=== PATIENT | female | born 1965 | race Caucasian/White ===

== ENCOUNTER 2025-08-02 23:23 | Emergency (ER) | payer MEDICAID ==
[~2025-08-02] VITALS: Ht 167.6 cm; Wt 79.5 kg
[2025-08-02 23:32] VITALS: TEMP 98
[2025-08-02] MEDS: HYDROcodone-ACET 10/325MG TAB PO ONE (23:45)
--- NOTE | 2025-08-02 23:54 | ED.PDOC ---
History of Present Illness HPI Comments 60-year-old female who came to ER for dizziness. Patient states at about an hour ago, she developed sudden onset dizziness, diaphoresis and back pains. Also experiencing bilateral tinnitus. [place] like the room was spinning. She does have history of vertigo. 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 Hx Family History Family History: Reviewed,noncontributory to illness Social History Smoker: Cigarettes Alcohol: Denies ETOH Use Drugs: Denies Drug Use Lives In: Home Constitutional: reports: diaphoresis; denies: chills, fatigue, fever, malaise, sweats, weakness, others EENTM: denies: blurred vision, double vision, ear bleeding, ear discharge, ear drainage, ear pain, ear ringing, eye pain, eye redness, hearing loss, mouth pain, mouth swelling, nasal discharge, nose bleeding, nose congestion, nose pain, photophobia, tearing, throat pain, throat swelling, voice changes, others Respiratory: denies: cough, hemoptysis, orthopnea, SOB at rest, shortness of breath, SOB with excertion, stridor, wheezing, others Cardiovascular: denies: chest pain, dizzy spells, diaphoresis, Dyspnea on exertion, edema, irregular heart beat, left arm pain, lightheadedness, palpitations, PND, syncope, others Gastrointestinal: denies: abdomen distended, abdominal pain, blood streaked bowels, constipated, diarrhea, dysphagia, difficulty swallowing, hematemesis, melena, nausea, poor appetite, poor fluid intake, rectal bleeding, rectal pain, vomiting, others Genitourinary: denies: abnormal vagina bleeding, burning, dyspareunia, dysuria, flank pain, frequency, hematuria, incontinence, pain, , vagina discharge, urgency, others Neurological: reports: dizziness; denies: fainting, headache, left sided numbne ss, left sided weakness, numbness, paresthesia, pre-existing deficit, right sided numbness, right sided weakness, seizure, speech problems, tingling, tremors, weakness, others Musculoskeletal: reports: back pain; denies: gout, joint pain, joint swelling, muscle pain, muscle stiffness, neck pain, others Integumetry: denies: bruises, change in color, change in hair/nails, dryness, laceration, lesions, lumps, rash, wounds, others Allergic/Immunocompromised: denies: Difficulty Healing, Frequent Infections, Hives, Itching, others Hematologic/Lymphatic: denies: anemia, blood clots, easy bleeding, easy bruising, swollen glands, others Endocrine: denies: excessive hunger, excessive sweating, excessive thirst, excessive urination, flushing, intolerance to cold, intolerance to heat, unexplained weight gain, unexplained weight loss, others Psychiatric: denies: anxiety, bipolar disorder, depression, hopeless, panic disorder, schizophrenia, sleepless, suicidal, others Physical Exam General Appearance: No Apparent Distress, Normal HEENT: Normal ENT Inspection, Pharynx Normal, TMs Normal Neck: Full Range of Motion, Non-Tender, Normal, Normal Inspection Respiratory: Chest Non-Tender, Lungs Clear, No Accessory Muscle Use, No Respiratory Distress, Normal Breath Sounds Cardiovascular: No Edema, No JVD, No Murmur, No Gallop, Normal Peripheral Pulses, Regular Rate/Rhythm Breast Exam: Deferred Gastrointestinal: No Organomegaly, Non Tender, No Pulsatile Mass, Normal Bowel Sounds, Soft Genitalia: Deferred Pelvic: Deferred Rectal: Deferred Extremities: No calf tenderness, Normal capillary refill, Normal inspection, Normal range of motion, Non-tender, No pedal edema Musculoskeletal : Apperance: Normal Neurologic: Alert, 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 Was a procedure done?: No Differential Dx Considerations may include: Anemia, electrolyte imbalance, anxiety, vertigo, dizziness X-Ray, Labs, Meds, VS Vital Signs Date Time Temp Pulse Resp B/P (MAP) Pulse Ox O2 Delivery O2 Flow Rate FiO2 08/03/25 00:17 110 18 136/85 (102) 96 08/02/25 23:32 98.0 113 20 162/93 97 98.0 Lab Test 08/03/25 00:50 08/03/25 00:00 08/02/25 23:50 Range/Units Troponin I High Sensitivity 5 6 </=34 ng/L Urine Color Yellow Yellow Urine Clarity Clear Clear Urine pH 7.5 5.0-9.0 Urine Specific [place] 1.020 1.001-1.035 Urine Protein Trace H Negative Urine Ketones Negative Negative Urine Blood Trace H Negative /uL Urine Nitrite Negative Negative Urine Bilirubin Negative Negative Urine Urobilinogen Normal Negative mg/dL Urine Leukocyte Esterase Negative Negative /uL Urine RBC 12 0 - 4 /hpf Urine Microscopic WBC 1 0-5 /HPF Urine Squamous Epithelial Cells Few <5 /hpf Urine Bacteria Few H None Seen /hpf Urine Mucus Few None Seen Urine Glucose Normal Normal mg/dL White Blood Count 9.6 4.4-10.8 10^3/uL Red Blood Count 4.33 4.0-5.20 10^6/uL Hemoglobin 13.8 12.2-16.2 g/dL Hematocrit 40.3 36.0-46.0 % Mean Corpuscular Volume 93.1 80.0-100.0 fL Mean Corpuscular Hemoglobin 31.8 28.0-32.0 pg Mean Corpuscular Hemoglobin Concent 34.1 32.0-36.0 g/dL Red Cell Distribution Width 12.9 11.8-14.3 % Platelet Count 269 140-450 10^3/uL Mean Platelet Volume 5.8 L 6.9-10.8 fL Neutrophils (%) (Auto) 83.2 H 37.0-80.0 % Lymphocytes (%) (Auto) 10.1 10.0-50.0 % Monocytes (%) (Auto) 6.1 0.0-12.0 % Eosinophils (%) (Auto) 0.2 0.0-7.0 % Basophils (%) (Auto) 0.4 0.0-2.0 % Neutrophils # (Auto) 8.0 1.6-8.6 10 ^3/uL Lymphocytes # (Auto) 1.0 0.4-5.4 10 ^3/uL Monocytes # (Auto) 0.6 0-1.3 10 ^3/uL Eosinophils # (Auto) 0 0-0.8 10 ^3/uL Basophils # (Auto) 0 0-0.2 10 ^3/uL Nucleated Red Blood Cells 0.0 % Sodium Level 135 L 136-145 mmol/L Potassium Level 3.8 3.5-5.1 mmol/L Chloride Level 102 98-107 mmol/L Carbon Dioxide Level 24 20-31 mmol/L Anion Gap 9 5-15 Blood Urea Nitrogen 10 9-23 mg/dL Creatinine 0.79 0.550-1.02 mg/dL Glomerular Filtration Rate Calc 85 >90 mL/min BUN/Creatinine Ratio 12.7 10.0-20.0 Serum Glucose 152 H 74-106 mg/dL Calcium Level 9.3 8.7-10.4 mg/dL Total Bilirubin 0.5 0.2-1.0 mg/dL Aspartate Amino Transferase (AST) 16 13-40 U/L Alanine Aminotransferase (ALT) 14 7-40 U/L Alkaline Phosphatase 90 46-116 U/L Total Protein 7.1 5.7-8.2 g/dL Albumin 4.4 3.2-4.8 g/dL Lipase 26 12-53 U/L Current Medications Medications (Trade) Dose Ordered Sig/Dori Route Start Time Stop Time Status Last Admin Ondansetron HCl (Zofran Po) 8 mg ONCE ONCE PO 08/02/25 23:45 08/02/25 23:47 DC 08/03/25 00:21 Tramadol HCl (Ultram) 50 mg ONCE ONCE PO 08/03/25 00:30 08/03/25 00:31 DC 08/03/25 00:32 Time of 1ST Reevaluation: 23:52 Reevaluation 1ST: Unchanged Patient Education/Counseling: Diagnosis, Treatment Family Education/Counseling: No Family Present SEPSIS Sepsis Screen Date sepsis recognized/suspect: Aug 02, 2025 Time Sepsis recognized/suspect: 2335 Recent Procedure: No On Antibiotic Therapy: No Respiratory Rate >20: No Heart Rate >90: Yes Temp<36 C (96.8 F) or >38.3 C: No SBP <90 or MAP <65 mmHG: No New Acute Mental Status Change: No Is the patient on CPAP, BIPAP,: No Physician Orders Troponin-I Hs (08/03/25 06:00) Electrocardigram (08/02/25 23:45) Head Without Contrast (08/02/25 23:45) Ondansetron Po (Zofran Po) (08/02/25 23:45) Vital Signs Date Time Temp Pulse Resp B/P (MAP) Pulse Ox O2 Delivery O2 Flow Rate FiO2 08/03/25 00:17 110 18 136/85 (102) 96 08/02/25 23:32 98.0 113 20 162/93 97 98.0 Laboratory Tests Test 08/02/25 23:50 White Blood Count 9.6 10^3/uL (4.4-10.8) Medications Medications Dose Ordered Sig/Dori Route Start Time Stop Time Status Last Admin Dose Admin Ondansetron HCl 8 mg ONCE ONCE PO 08/02/25 23:45 08/02/25 23:47 DC 08/03/25 00:21 Tramadol HCl 50 mg ONCE ONCE PO 08/03/25 00:30 08/03/25 00:31 DC 08/03/25 00:32 Departure 1 Departure Time of Disposition: 02:19 Impression: Primary Impression: Dizziness Disposition: 07 LEFT AGAINST MEDICAL ADVICE Condition: Guarded Critical Care Note Critical Care Time?: No Stability Stability form required: No Heart Score Heart Score: Heart Score Response (Comments) Value History N/A 0 EKG N/A 0 Age N/A 0 Risk Factors N/A 0 Troponin N/A 0 Total 0 I personally scribed for NATANAEL BERRIOS MD ([email or web address]) on 08/02/25 at 23:54. Electronically submitted by Vik Fleming ([facility]). NATANAEL BERRIOS MD Aug 02, 2025 23:54
[2025-08-03] LABS: Hematocrit 40.3 % (36.0-46.0); Hemoglobin 13.8 g/dL (12.2-16.2); Mean Corpuscular Hemoglobin 31.8 pg (28.0-32.0); Mean Corpuscular Volume 93.1 fL (80.0-100.0); Nucleated Red Blood Cells % 0.0 %
[2025-08-03 00:17] VITALS: BP 136/85; RESP 18; O2SAT 96
[2025-08-03 00:20] LABS: Alanine Aminotransferase 14 U/L (7-40); Albumin 4.4 g/dL (3.2-4.8); Alkaline Phosphatase 90 U/L (46-116); Anion Gap 9 (5-15); BUN/Creatinine Ratio 12.7 (10.0-20.0); Blood Urea Nitrogen 10 mg/dL (9-23); Calcium 9.3 mg/dL (8.7-10.4); Carbon Dioxide 24 mmol/L (20-31); Chloride 102 mmol/L (98-107); Lipase 26 U/L (12-53); Potassium 3.8 mmol/L (3.5-5.1); Total Protein 7.1 g/dL (5.7-8.2)
[2025-08-03 00:21] LABS: Bilirubin, Total 0.5 mg/dL (0.2-1.0)
[2025-08-03] MEDS: ONDANSETRON ODT 4 MG TAB PO ONE (00:21)
[2025-08-03 00:22] LABS: Glucose 152 mg/dL (74-106); Sodium 135 mmol/L (136-145)
[2025-08-03 00:45] VITALS: PULSE 105
[2025-08-03 01:28] LABS: Urine Protein, UAD TRACE (Negative)
--- NOTE | 2025-08-03 02:24 | DVH ---
CT HEAD WITHOUT CONTRAST HISTORY: Vertigo. COMPARISON: None available. CONTRAST: Study was performed without contrast. TECHNIQUE: Axial images from the skull base to the vertex with coronal and sagittal reformatted images. Dose reduction technique was used on this scan by utilizing automated exposure control, adjustment of the mA and/or kV according to the patient size. DICOM format image data available to non-affiliated external healthcare facilities or entities on a secure, media free, reciprocally searchable basis with patient authorization for at least a 12 month period after the study. CTDIvol: 61.1 mGy; DLP: 1204.2 mGy-cm. FINDINGS: BRAIN PARENCHYMA: No acute hemorrhage, large vascular territory infarct, or mass effect. White matter is within normal limits for age. VENTRICLES/EXTRA-AXIAL SPACES: No ventriculomegaly or extra-axial collection. Basal cisterns are patent. EXTRACRANIAL STRUCTURES: No acute or suspicious ossues abnormality. Normal soft tissues. Paranasal sinuses and mastoids demonstrate no significant abnormality. Orbits are unremarkable. Mild calcific atherosclerosis of the carotid siphons. IMPRESSION: No acute intracranial abnormality.
--- NOTE | 2025-08-04 10:38 | ECG ---
[facility] Test Date: 2025-08-03 Test Time: 00:45:27 Pat Name: DANII JUÁREZ Department: ED Room: Gender: F Corporate Secretary: : 1965 Requested By: NATANAEL BERRIOS Order Number: [id number] Reading MD: London Levin Measurements Intervals [place] Rate: 105 P: 76 VA: 138 QRS: 85 QRSD: 88 T: 63 QT: 333 QTc: 441 Interpretive Statements Sinus tachycardia Consider left atrial enlargement Borderline right axis deviation Baseline wander in lead(s) V3 Electronically Signed On 08-07-2025 8:34:09 PST by London Levin Please click the below link to view image of tracing.
== END 2025-08-03 02:15 | disposition left against medical advice (07) ==
LOC: ER 23:23
DX: R42 Dizziness and giddiness (principal); F17.210 Nicotine dependence, cigarettes, uncomplicated; E78.5 Hyperlipidemia, unspecified; J44.9 Chronic obstructive pulmonary disease, unspecified; Z88.5 Allergy status to narcotic agent
CPT/HCPCS: 36415; 70450; 80053; 81001; 83690; 84484; 85025; 93005; 99284; Q0162